=== PATIENT | male | born 1970 | race Two or more races ===

== ENCOUNTER 2025-06-11 18:51 | Emergency (ER) | payer OTHER ==
[2025-06-11 18:56] VITALS: RESP 18; BMI 31.5
[2025-06-11 19:37] LABS: URINE APPEARANCE CLEAR; URINE BILIRUBIN NEGATIVE (NEGATIVE); URINE COLOR YELLOW; URINE GLUCOSE (UA) NEGATIVE (NEGATIVE); URINE KETONE NEGATIVE (NEGATIVE); URINE LEUK ESTERASE NEGATIVE (NEGATIVE); URINE NITRITE NEGATIVE (NEGATIVE); URINE PROTEIN NEGATIVE (NEGATIVE); URINE UROBILINOGEN 0.2 mg/dL (0.2-1.0)
[2025-06-11 19:39] LABS: ABSOLUTE IMMATURE GRANULOCYTES 0.02 x10^3/uL (0.0-0.031); BASOPHILS # 0.04 x10^3/uL (0.01-0.08); EOSINOPHIL % 1.2 % (0.8-7.0); EOSINOPHILS # 0.10 x10^3/uL (0.04-0.54); MCHC 31.8 g/dl (32.3-36.5); MEAN CELL VOLUME 84.9 fl (79.0-92.2); MEAN PLT VOLUME 9.8 fl (9.4-12.4); MONOCYTE # 0.78 x10^3/uL (0.30-0.82); MONOCYTE % 9.2 % (5.3-12.2); RDW 14.4 % (12.2-16.1)
[2025-06-11 20:03] LABS: CO2 29.0 mmol/L (21-32); GLUCOSE,RANDOM 104.0 mg/dL (74-106)
[2025-06-11 20:06] LABS: CREATININE 0.9 mg/dL (0.55-1.3); SGOT/AST 18.0 U/L (15-37); SGPT/ALT 35.0 U/L (13-61)
[2025-06-11 20:08] LABS: TOT PROT 7.0 g/dl (6.4-8.2)
[2025-06-11 20:09] LABS: ALK PHOS 136.0 U/L (45-117)
[2025-06-11 21:54] VITALS: BP 138/77; PULSE 51; TEMP 97.5
[2025-06-12 00:45] LABS: HCV DIAGNOSTIC IN-HOUSE W/RFLX NON-REACTIVE (NONREACTIVE)
[2025-06-12 00:49] LABS: HIV INTERPRETATION NEGATIVE (NEGATIVE)
== END 2025-06-11 22:23 | disposition home or self-care (01) ==
LOC: JER 18:51
DX: R10.30 Lower abdominal pain, unspecified (principal); R35.0 Frequency of micturition
CPT/HCPCS: 36415; 74176-TC; 80053; 81003; 85025; 86803; 87086; 87389; 99285-25